=== PATIENT | female | born 1950 | race Two or more races ===

== ENCOUNTER 2020-11-23 17:15 | Emergency (ER) | payer OTHER ==
[~2020-11-23] VITALS: Ht 157.5 cm; Wt 73.0 kg
[2020-11-23 17:36] VITALS: BP 156/79
[2020-11-23] MEDS ORDERED: REGENERON ANTIBODY ER ORDER 1 EA MISC MC ONE (19:10)
--- NOTE | 2020-11-23 19:18 | NUR ---
TEMO SWAB COLLECTED AND WALKED TO LAB.
[2020-11-23] MEDS ORDERED: NON-FORMULARY ITEM 1 EA in NACL 0.9% 100 ML IV SCH (20:30)
--- NOTE | 2020-11-23 21:28 | NUR ---
Patient discharged with v/s stable. Written and verbal after care instructions given ABOUT COVID 19 and explained. Patient verbalized understanding. Ambulatory with steady gait. All questions addressed prior to discharge. Advised to follow up with PMD.
== END 2020-11-23 21:27 | disposition home or self-care (01) ==
LOC: MED 17:15
DX: R53.1 Weakness (principal); Z20.822 Contact with and (suspected) exposure to COVID-19; R53.83 Other fatigue; R42 Dizziness and giddiness; I10 Essential (primary) hypertension
CPT/HCPCS: 99283